=== PATIENT | female | born 1950 | race Hispanic/Latino ===

== ENCOUNTER → 2018-12-20 | Outpatient (CLI) | payer MEDICARE ==
--- NOTE | 2018-12-20 15:31 | Diagnostic Imaging Report ---
Abdomen, 1 view. History: Abdominal pain. Findings: Air is scattered throughout nondilated small and large bowel. Surgical clips and suture are noted in the left abdomen. There are no visible renal calcifications. There are no masses. Degenerative and postsurgical changes are noted in the lumbar spine. The osseous structures are intact. IMPRESSION: Non-specific bowel gas pattern. Signed by: Gabe Cruz on 12/20/2018 3:28 PM
--- NOTE | 2018-12-20 15:38 | Diagnostic Imaging Report ---
Renal ultrasound, 12/20/2018. History: Angiomyolipoma. Discussion: Transverse and longitudinal images of the kidneys were obtained demonstrating normal renal sizes and echogenicities. There is no evidence of hydronephrosis or renal calculus. A nonshadowing echogenic lesion is present in the upper pole of the right kidney measuring 0.4 x 0.3 x 0.3 cm. The right kidney measures 10.6 cm and the left kidney measures 9.8 cm in length. Renal cortex measures 1.5 and 1.3 cm respectively. The urinary bladder is unremarkable. Bilateral ureteral jets are identified. Bladder volume measures 45.1 mL. There is no evidence of free fluid. IMPRESSION: Small right renal angiomyolipoma. Otherwise unremarkable renal ultrasound. Signed by: Gabe Cruz on 12/20/2018 3:35 PM
== END ==
LOC: US 13:22
PROVIDERS: ATTEND Urology
DX: D41.00 Neoplasm of uncertain behavior of unspecified kidney (principal); N20.0 Calculus of kidney
CPT/HCPCS: 74018; 76770

== ENCOUNTER → 2019-01-03 | Outpatient (CLI) | payer OTHER ==
--- NOTE | 2019-01-03 17:11 | Diagnostic Imaging Report ---
EXAM: Renal Ultrasound INDICATION: ^NEOPLASM OF UNCERTAIN BEHAVIOR OF UNSPEC'D KIDNEY COMPARISON: Renal ultrasound of 12/20/2018 TECHNIQUE: Transverse and longitudinal images of the kidneys and bladder were obtained. FINDINGS: Right Kidney: Length: 12.0 cm Appearance: Normal echogenicity. Collecting system: No hydronephrosis Stones: None Cyst/Mass: None shadowing 5 x 4 x 5 mm upper pole hyperechoic lesion previously measured 4 x 3 x 3 mm and likely represents an angiomyolipoma. Left Kidney: Length: 10.0 cm Appearance: Normal echogenicity. Collecting system: No hydronephrosis Stones: None Cyst/Mass: None Bladder: No mass or calculi. Bilateral ureteral jets seen. Prevoid volume estimate of 145.5 cc. IMPRESSION: Right upper pole angiomyolipoma, stable to slightly increased from 12/20/2018. Signed by: Ethan Maldonado MD on 01/03/2019 5:07 PM
== END ==
LOC: US 16:02
PROVIDERS: ATTEND Urology
DX: D41.00 Neoplasm of uncertain behavior of unspecified kidney (principal)
CPT/HCPCS: 76770

== ENCOUNTER 2019-01-31 13:24 | Emergency (ER) | payer MEDICARE ==
[~2019-01-31] VITALS: Ht 149.9 cm; Wt 70.8 kg
--- OUTSIDE RECORDS SUMMARY | 2019-01-31 13:26 | XMS REPORT ---
Author Author [facility] Address Unknown Phone Unavailable Care Team Providers Care Bathhouse Attendant Name Role Phone CHRISS PARMAR Unavailable Unavailable Payers Payer Name Policy Type Policy Number Effective Date Expiration Date Problems This patient has no known problems. Allergies, Adverse Reactions, Alerts Allergy Name Allergy Type Status Severity Reaction(s) Onset Date Inactive Date Treating Clinician Comments No Known Allergies DA Active U 2012-07-25 00:00:00 Medications This patient has no known medications. Encounters Start Date/Time End Date/Time Encounter Type Admission Type Attending Clinicians Care Facility Care Department Encounter ID 2019-01-07 09:12:00 2019-01-07 09:12:00 [facility] [id number] Results Test Description Test Time Test Comments Text Results Atomic Results Result Comments US RENAL RETROPERITONEAL COMP 2019-01-03 17:05:00 [facility] [address] [place] [address] Patient Name: CHRISTOPHER HAYNES MR #: [id number] : 1950 Age/Sex: 68/F Req #: [id number] Adm Physician: Ordered by: CHRISS PARMAR MD Report #: [id number] Location: Room/Bed: Procedure: [id number] US/US RENAL RETROPERITONEAL COMP Exam Date: Exam Time: REPORT STATUS: Signed EXAM: Renal Ultrasound INDICATION: NEOPLASM OF U NCERTAIN BEHAVIOR OF UNSPEC'D KIDNEY COMPARISON: Renal ultrasound of 12/20/2018 TECHNIQUE: Transverse and longitudinal images of the kidneys and bladder were obtained. FINDINGS: Right Kidney: Length: 12.0 cm Appearance: Normal echogenicity. Collecting system: No hydronephrosis Stones: None Cyst/Mass: None shadowing 5 x 4 x 5 mm upper pole hyperechoic lesion previously measured 4 x 3 x 3 mm and likely represents an angiomyolipoma. Left Kidney: Length: 10.0 cm Appearance: Normal echogenicity. Collecting system: No hydronephrosis Stones: None Cyst /Mass: None Bladder: No mass or calculi. Bilateral ureteral jets seen. Prevoid volume estimate of 145.5 cc. IMPRESSION: Right upper pole angiomyolipoma, stable to slightly increased from 12/20/2018. Signed by: Sahara Medina MD on 01/03/2019 5:07 PM Dictated By: SAHARA MEDINA MD 06 Transcribed By: TOMAS on 01/03/191706 COPY TO: CHRISS PARMAR MD RENAL RETROPERITONEAL COMP 2018-12-20 15:29:00 [place] [id number] Patient Name: CHRISTOPHER HAYNES MR #: [id number] : 1950 Age/Sex: 68/F Req #: [id number] Adm Physician: Ordered by: CHRISS PARMAR MD Report #: [id number] Location: US Room/Bed: Procedure: [id number] US/US RENAL RETROPERITONEAL COMP Exam Date: 12/20/18 Exam Time: 1341 REPORT STATUS: Signed Renal ultrasound, 12/20/2018. History: An giomyolipoma. Discussion: Transverse and longitudinal images of the kidneys were obtained demonstrating normal renal sizes and echogenicities. There is no evidence of hydronephrosis or renal calculus. A nonshadowing echogenic lesion is present in the upper pole of the right kidney measuring 0.4 x 0.3 x 0.3 cm. The right kidney measures 10.6 cm and the left kidney measures 9.8 cm in konrad th. Renal cortex measures 1.5 and 1.3 cm respectively. The urinary bladder is unremarkable. Bilateral ureteral jets are identified. Bladder volume measures 45.1 mL. There is no evidence of free fluid. IMPRESSION: Small right renal angiomyolipoma. Otherwise unremarkable renal ultrasound. Signed by: Gabe Cruz on 12/20/2018 3:35 PM Dictated By: GABE CRUZ MD 1535 Transcribed By: TOMAS on 12/20/18 1535 COPY TO: CHRISS PARMAR MD ABDOMEN-1VIEW (KUB) 2018-12-20 15:27:00 [place] [id number] Patient Name: CHRISTOPHER HAYNES MR #: [id number] : 1950 Age/Sex: 68/F Req #: [id number] Adm Physician: Ordered by: CHRISS PARMAR MD Report #: [id number] Location: Room/Bed: Procedure: [id number] DX/ABDOMEN-1VIEW (KUB) Exam Date: 12/20/18 Exam Time: 1400 REPORT STATUS: Signed Abdomen, 1 view. History: Abdominal pain. Findings: Air is scattered throughout nondilated small and large bowel. Surgical clips and suture are noted in the left abdomen. There are no visible renal calcifications. There are no masses. Degenerative and postsurgical changes are noted in the lumbar spine. The osseous structures are intact. IMPRESSION: Non-specific bowel gas pattern. Signed by: Gabe Cruz on 12/20/2018 3:28 PM Dictated By: GABE CRUZ MD 1528 Transcribed By: TOMAS on 12/20/18 1528 COPY TO: CHRISS PARMAR MD SCR MAMM BILATERAL PRIMITIVO CAD DIGITAL 2018-06-04 13:16:27 - SCR MAMM BILATERAL PRIMITIVO CAD DIGITALBILATERAL DIGITAL SCREENING MAMMOGRAM 3D/2D WITH CAD: 06/04/2018CLINICAL: Asymptomatic. Digital breast tomosynthesis was performed in addition to routine CC and MLO views. Current mammographic images were evaluated by either a [employer] M-Vu or a [employer] Pluscker CAD (computer aided detection system). Comparison is made to exams dated 05/02/2017 mammogram, 2016 mammogram, and 03/29/2016 mammogram - [facility]. There are scattered fibroglandular tissues in both breasts. There are benign vascular calcifications in both breasts. No suspicious mass, architectural distortion, malignant type calcification, or lymph node abnormality detected. Breast architecture is stable compared to prior exams.IMPRESSION: BENIGNThere is no mammographic evidence of malignancy. Resume annual screening mammography in one year. Kate Dalton M.D. dm/penrad:06/04/2018 13:16:27 Rod Cup Filler: Kelly ROY, [facility]: BIRADS 1-2 Normal Mammogram BI-RADS: 2 Benign
[2019-01-31 13:46] VITALS: BP 159/82
[2019-01-31] MEDS ORDERED: DIAZEPAM 2 MG TAB PO ONE (14:00)
--- NOTE | 2019-01-31 15:38 | Diagnostic Imaging Report ---
Examination: CT CERVICAL SPINE WO CONTRAST HISTORY:Fall with neck injury COMPARISON:None. TECHNIQUE: Multidetector helical axial images were obtained without contrast from the foramen magnum to T1. Coronal and sagittal reformatted images were done. Bone and soft tissue windows were evaluated. Dose modulation, iterative reconstruction, and/or weight based adjustment of the mA/kV was utilized to reduce the radiation dose to as low as reasonably achievable. FINDINGS: Alignment:Normal alignment and lordosis. Vertebrae: Normal height and density. No acute fracture, infection or neoplasm. Posterior fossa and craniocervical junction: Foramen magnum patent. No Chiari 1 malformation. Soft tissues: No abnormality. Degenerative changes: Diffuse disc osteophyte complexes at C3-C4, C5-C6 and C6-C7 with moderate left foraminal narrowing at C5-C6 and C6-C7. No canal stenosis. Visualized lung apices: No abnormalities. IMPRESSION: No acute abnormality. Mild degenerative changes, as above. Signed by: Dr. Vanda Mosley M.D. on 01/31/2019 3:54 PM
[2019-01-31] MEDS ORDERED: KETOROLAC TROMETHAMINE 30 MG/ML VIAL IM ONE (15:54)
== END 2019-01-31 16:29 | disposition home or self-care (01) ==
LOC: ER 13:24
DX: S16.1XXA Strain of muscle, fascia and tendon at neck level, initial encounter (principal); W19.XXXD Unspecified fall, subsequent encounter; I10 Essential (primary) hypertension; E11.9 Type 2 diabetes mellitus without complications; G89.29 Other chronic pain
CPT/HCPCS: 72125; 99283; J1885